=== PATIENT | male | born 1990 | race African-American/Black ===

== ENCOUNTER 2020-08-03 19:19 | Emergency (ER) | payer BC ==
[2020-08-03 19:41] VITALS: BP 133/73; PULSE 73; TEMP 98.2; BMI 29.5
[2020-08-03] MEDS ORDERED: DIPHTH,PERTUSS(ACELL),TET 0.5 ML DISP.SYRIN IM ONE (22:47)
[2020-08-04] MEDS ORDERED: DIPHTH,PERTUSS(ACELL),TET 0.5 ML DISP.SYRIN IM ONE (00:09)
== END 2020-08-04 01:18 | disposition home or self-care (01) ==
LOC: JER 19:19
PROC: 0HQ0XZZ Repair Scalp Skin, External Approach (ICD-10-PCS; principal; 2020-08-03)
PROC: 3E0234Z Introduction of Serum, Toxoid and Vaccine into Muscle, Percutaneous Approach (ICD-10-PCS; principal; 2020-08-03)
DX: S01.01XA Laceration without foreign body of scalp, initial encounter (principal); W19.XXXA Unspecified fall, initial encounter
CPT/HCPCS: 70450-TC; 72125-TC; 90715; 99284-25